=== PATIENT | female | born 1975 | race Caucasian/White ===

== ENCOUNTER 2017-01-22 06:26 | Day surgery (SDC) | payer OTHER, MEDICARE ==
[~2017-01-22 06:26] MED LIST: ACETAMINOPHEN 500 MG TABLET PO PRN; HYDROmorphone HCL 2 MG/ML VIAL IV PRN; MAG HYDROX/ALUMINUM HYD/SIMETH 30 ML UDC PO PRN; MAGNESIUM HYDROXIDE 30 ML UDC PO PRN; ONDANSETRON HCL/PF 2 MG/ML VIAL IV PRN; PROMETHAZINE HCL 25 MG in DEXTROSE 5 % IN WATER 50 ML IV PRN; RINGER'S SOLUTION,LACTATED 1,000 ML IV PRN; ZOLPIDEM TARTRATE 5 MG TABLET PO PRN; ceFAZolin SODIUM 1 GM VIAL IV PRN; diphenhydrAMINE HCL 50 MG/ML VIAL IV PRN; oxyCODONE HCL/ACETAMINOPHEN 1 TAB TABLET PO PRN
[2017-01-22] MEDS ORDERED: RINGER'S SOLUTION,LACTATED 1,000 ML IV ONE (07:34)
--- NOTE | 2017-01-22 09:41 | OR ---
Operative Report - Dictated Report Narrative: Date: 01/22/2017 Physician: Urban Machado M.D. Data Recovery Planner: David Valles PA-C Preoperative diagnosis: Left Shoulder supraspinatus rotator cuff tear Postoperative diagnosis: Left Shoulder supraspinatus rotator cuff tear, degenerative labral tear Procedure: Left shoulder arthroscopy with mini open rotator cuff repair, debridement of labrum Anesthesia: General plus regional Complications: None Estimated blood loss: Minimal Specimens: None Retained implants: [employer] 4.5 mm peek helicoil anchor 1 footprint anchor 1 Drains: None Indications: Mrs. Bliss Is a 41 year-old female who has been followed in my clinic with complaints of shoulder pain consistent with rotator cuff pathology. Physical exam and diagnostic imaging were consistent with his complaints and concern for full-thickness rotator cuff tear. Conservative measures have failed including, but not limited to, passage of time, activity modification, medications, physical therapy/home exercise program, or injections. The risks, benefits, and alternatives were discussed in clinic. The risks being , bleeding, infection, blood clots, nerve, tendon, ligament, blood vessel injury, persistent pain, arthrosis, stiffness, need for prolonged therapy, need for additional procedures, and persistent symptoms. Consent was obtained in the clinic. Procedure: After marking the correct extremity in the preoperative holding area, a timeout was performed in the operating room. IV antibiotics consisting of Ancef were administered prior to the procedure. A general followed by regional anesthetic was induced by the nurse state inspector per my request. This was in the supine position, then the patient was transitioned to a beachchair position with all bony prominences well-padded, head in neutral, the nonoperative arm well supported, and the legs padded with SCDs in place. The operative shoulder was then prepped and draped in a standard sterile fashion. Preoperatively the shoulder had full passive range of motion, and grade 1 anterior instability. After marking out the bony landmarks, saline was infused into the joint through a posterior lateral portal site. A amber incision was made, and the blunt trocar and cannula was introduced into the shoulder joint. An accessory portal was placed in the rotator cuff interval using a spinal needle for guidance. Upon initial evaluation, the biceps tendon showed no tendinopathy or tear. The middle glenohumeral ligament was unremarkable. Subscapularis tendon was minimally frayed but intact. The glenoid showed no pathology. The humeral head articular surface showed no pathology. The anterior labrum was frayed but not torn off the glenoid. The superior labrum was unremarkable. The pouch was unremarkable. The posterior labrum was unremarkable. The supraspinatus tendon was longitudinally split and near full-thickness tear just behind the biceps consistent with her MRI findings. The infraspinatus tendon was unremarkable. Utilizing a shaver the anterior labrum was debrided. An accessory lateral incision was made in line with the projected skin incision for the rotator cuff tear in the greater tuberosity and the minimal remaining fibers of the supraspinatus were debrided. Attention was then turned to the subacromial space. Subacromial bursectomy was performed utilizing the prior portals. The coracoacromial ligament was intact. The bursal side of the rotator cuff demonstrated a full-thickness tears identified intra-articularly. The acromial arch was unremarkable. Based on the arthroscopic findings, as well as exam and radiographic findings, it was elected to proceed with a mini open rotator cuff repair. A longitudinal incision centered over the previously identified rotator cuff tear was made just off the edge of the acromion. This was approximately 4 centimeters in length. The deltoid fascia was split sharply in line with its fibers, and blunt dissection was carried through the deltoid muscle. Any remaining subacromial bursal tissue was debrided in order to expose the underlying rotator cuff tear. The rotator cuff tear appeared to be inverted T orientation. The tuberosity was debrided of its soft tissues producing a bleeding bed for the tendon to be secured to. 1 4.5 mm PEEK helicoil anchor was placed just off the articular surface of the humeral head. A series of horizontal mattress sutures were placed at the prepared edge of the rotator cuff. This allowed for a tension-free return of the tendon to the greater tuberosity. The sutures were then passed longitudinally into 1 4.5 mm PEEK footprint anchor. This was performed and a suture bridge technique. This gave good overall compression to the rotator cuff at the insertion site. The shoulders place a range of motion and had no lift off of the repair site as well as no crepitance or signs of impingement. Full passive range of motion was able to be obtained. Once it was felt that the rotator cuff was adequately repaired, the wounds were thoroughly irrigated. 0 Vicryl was utilized in order to repair the deltoid fascia. 3-0 Vicryl was placed in the subcutaneous tissue. The rotator cuff incision as well as the portal sites were closed with interrupted nylon. Dressings consisting of Xeroform, 4 x 4, ABD, soft roll, and tape were applied. All sponge, needle, blade, and instrument counts were correct prior to closing the wounds. The patient was awoken and transferred to the postanesthesia care unit in stable condition.
[2017-01-22 11:02] VITALS: BP 110/68
[2017-01-22] MEDS ORDERED: SENNOSIDES/DOCUSATE SODIUM 1 TAB TABLET PO SCH (21:00)
--- NOTE | 2017-01-24 09:56 | OR ---
Anesthesia Procedure Note - Anesthesia Procedure Note Date of Service: 01/22/17 Narrative: Vital Signs - Last Taken Temp 36.6 C 01/22/17 09:40 Pulse 78 01/22/17 10:40 Resp 16 01/22/17 10:40 BP 110/68 01/22/17 10:40 Pulse Ox 95 01/22/17 10:40 O2 Oxygen Delivery Method Room Air 01/24/17 09:55 ANESTHESIA PROCEDURE NOTE Date of Procedure: 01/22/2017 Time of procedure: . Performed by: ALEM Fox CRNA, MSN Cloth Shrinking Machine Operator: Jaelyn Rush RN. Preprocedure diagnosis: Left shoulder pain following surgery. Post procedure diagnosis: Same. Procedure: Left Interscalene nerve block. Indications: Post shoulder surgery pain relief. Findings: See below. Details of the procedure: The patient was brought to OR #4 and placed in semi- Fowlers position. The patient was prepped with chlorhexidine and using ultrasound guidance the left interscalene segment of the brachial plexus was identified and lidocaine 1% was infiltrated to the skin of the intended injection site. Under ultrasound guidance the interscalene nerve bundles were approached until a shoulder/arm response was identified on nerve stimulator. Once the stimulator response was effective at less than 0.5 mV and greater than 0.3 mV the femoral nerve was surrounded with 30 mL bupivacaine 0.5% with 1-200, 000 epinephrine. Please see radiology/ultrasound report for details and images of the procedure. EBL: 0 Fluids: N/A. Specimen: N/A. Post procedure condition: The patient tolerated the procedure well. No complications were noted. Thank you for this consultation. Donovan Crawford CRNA, LUMBER SORTER MACHINE, MSN
== END 2017-01-22 06:27 | disposition home or self-care (01) ==
LOC: AMB 06:26
PROVIDERS: ATTEND Orthopaedic Surgery
PROC: 0LQ20ZZ Repair Left Shoulder Tendon, Open Approach (ICD-10-PCS; 2017-01-22)
PROC: 0RBK4ZZ Excision of Left Shoulder Joint, Percutaneous Endoscopic Approach (ICD-10-PCS; principal; 2017-01-22 08:00)
DX: M75.102 Unspecified rotator cuff tear or rupture of left shoulder, not specified as traumatic (principal); E11.9 Type 2 diabetes mellitus without complications; M79.7 Fibromyalgia; K90.0 Celiac disease; F32.9 Major depressive disorder, single episode, unspecified; F17.200 Nicotine dependence, unspecified, uncomplicated; Z68.20 Body mass index [BMI] 20.0-20.9, adult